=== PATIENT | female | born 1955 | race Caucasian/White ===

== ENCOUNTER 2017-03-01 14:02 | Outpatient (CLI) | payer BC ==
--- NOTE | 2017-03-01 14:32 | MMO ---
BILATERAL SCREENING MAMMOGRAM: Comparison: 2014, 2015 This study is interpreted with the assistance of computer aided detection. FINDINGS: Scattered fibroglandular densities are again noted. No suspicious finding or interval change. Recomme nd one year follow up. IMPRESSION: BIRADS 1 - negative. POS: LUZ
== END 2017-03-01 14:03 | disposition home or self-care (01) ==
LOC: SCSMAMMO 14:02
DX: Z12.31 Encounter for screening mammogram for malignant neoplasm of breast (principal)
CPT/HCPCS: 77067; G0202

== ENCOUNTER 2017-06-28 10:51 | Outpatient (CLI) | payer BC ==
[2017-06-28 11:51] LABS: Bilirubin Negative (Negative); Blood, Urine Negative (Negative); Clarity CLEAR (Clear); Glucose, Urine (Dipstick) Negative (Negative); Leukocyte Negative (Negative); Nitrite Negative (Negative); Protein, Urine (Dipstick) Negative (Neg-Trace); Specific Gravity, Urine 1.014 (1.002-1.036); Urobilinogen 0.2 mg/dL (0.2-1.0)
[2017-06-28 11:54] LABS: Bacteria/HPF None Seen HPF (None Seen); Hyaline Casts/LPF 0-3 HYALINE CAST LPF (0-3 Hyaline); Pathc Cast-AUWi Flag 0.14 (0-2.49); RBC/HPF 0-3 HPF (0-3); Squamous Epithelial None Seen HPF (0-3); WBC/HPF None Seen HPF (0-3)
[2017-06-28 12:03] LABS: #Basophils 0.1 thou/uL (0.0-0.2); #Eosinphils 0.2 thou/uL (0.0-0.7); #Lymphocytes 2.2 thou/uL (1.20-3.40); #Monocytes 0.4 thou/uL (0.11-0.59); #Neutrophils 2.7 thou/uL (1.40-6.50); %Basophils 1.4 % (0.0-1.0); %Eosinophils 3.3 % (0.0-10.0); %Monocytes 7.4 % (0.0-10.0); %Neutrophils 47.9 % (42.0-75.0); Hemoglobin 13.8 g/dL (12.0-16.0); Mean Corpuscular HGB CONC 33.3 g/dL (32.0-36.0); Mean Corpuscular Hemoglobin 32.5 pg (27.0-31.0); Mean Corpuscular Volume 97.6 fl (81.0-99.0); Mean Platelet Volume 7.5 fL (7.4-10.4); Platelet Count 206 thou/uL (130-400); RBC Distribution Width 11.6 % (11.5-14.5); Red Blood Cell (RBC) Count 4.24 mill/uL (4.20-5.40); White Blood Cell (WBC) Count 5.6 thou/uL (4.8-10.8)
[2017-06-28 12:10] LABS: ALT (SGPT) 15 U/L (8-55); AST (SGOT) 20 U/L (5-34); Albumin 4.8 g/dL (3.4-4.8); Alkaline Phosphatase 62 U/L (40-150); Anion Gap 10 mmol/L (10-20); BUN (Urea Nitrogen) 14 mg/dL (9.8-20.1); Bilirubin, Total 0.6 mg/dL (0.2-1.2); Calc. Creatinine Clearance 0 mL/min (70-130); Calcium 10.2 mg/dL (7.8-10.44); Carbon Dioxide 31 mmol/L (23-31); Chloride 104 mmol/L (98-107); Estimated GFR-MDRD 72; Globulin 2.7 g/dL (2.4-3.5); Glucose 99 mg/dL (80-115); Potassium 4.7 mmol/L (3.5-5.1); Protein, Total 7.5 g/dL (6.0-8.3); Sodium 140 mmol/L (136-145)
== END 2017-06-28 10:52 | disposition home or self-care (01) ==
LOC: LABBT 10:51
PROVIDERS: ATTEND Surgery
DX: Z01.818 Encounter for other preprocedural examination (principal); K64.2 Third degree hemorrhoids
CPT/HCPCS: 80053; 81001; 85025; 93005; 93010

== ENCOUNTER 2017-07-04 10:17 | Day surgery (SDC) | payer BC ==
[2017-06-28 10:58] VITALS: BMI 27.3
[2017-07-04] MEDS ORDERED: cefOXitin 2 GM, Syringe 1 ML in Sterile Water 10 ML SLOW IVP ONE (11:00)
[2017-07-04] MEDS ORDERED: Bupivacaine/Epinephrine 0.25% 30 ML VIAL ONE (11:08)
[2017-07-04] MEDS ORDERED: Bacitracin Zinc Ointment 30 gm TUBE ONE (11:08)
[2017-07-04] MEDS ORDERED: Ondansetron HCl/PF 4 MG/2 ML Vial ONE (11:37)
[2017-07-04] MEDS ORDERED: Midazolam HCl 2 mg/2 ml Vial ONE ×2 (11:37→11:53)
[2017-07-04] MEDS ORDERED: Fentanyl 250 MCG/5 ML VIAL ONE (11:37)
[2017-07-04] MEDS ORDERED: Glycopyrrolate 0.2 MG/ML 5 ML SYRINGE ONE (11:37)
[2017-07-04] MEDS ORDERED: Dexamethasone 20 MG/5 ML VIAL ONE (11:37)
[2017-07-04] MEDS ORDERED: Lidocaine 1% PF 5 ML VIAL ONE (11:37)
[2017-07-04] MEDS ORDERED: PROPOFOL 200 MG/20 ML VIAL ONE (11:37)
--- NOTE | 2017-07-04 11:43 | HP ---
CHIEF COMPLAINT: Hemorrhoidal prolapse. HISTORY OF PRESENT ILLNESS: The patient is a 61-year-old female, who is having episodic bright red b lood per rectum. Colonoscopy negative. She was found to have grade 3 hemorrhoids as the source. PAST MEDICAL HISTORY: Significant for hypertension. PAST SURGICAL HISTORY: section. Mole excision. MEDICATIONS: Vagifem and multivitamins. ALLERGIES: She has an allergy to BACTRIM. FAMILY HISTORY: Father of heart disease. Mother of heart disease. SOCIAL HISTORY: She is , retired, no tobacco, occasional alcohol. PHYSICAL EXAMINATION: VITAL SIGNS: Height 5 feet 1, weight 136, body mass index 25.7. Blood pressure 136/73. GENERAL: Well-developed, well-nourished female, in no apparent distress. HEENT: Unremarkable. LUNGS: Clear. HEART: Regular rate and rhythm. ABDOMEN: Soft, nontender, good bowel sounds. EXTREMITIES: Good pulses. No pedal edema. She has grade 3 hemorrhoids. ASSESSMENT: Symptomatic grade 3 hemorrhoids. PLAN: PPH stapled hemorrhoidectomy. CONSENT: I have discussed the planned procedure as well as risk of bleeding, infection, injury to sp hincter mechanism with incontinence. She understands and gives informed consent.
[2017-07-04] MEDS ORDERED: Fentanyl 100 MCG/2 ML VIAL ONE (13:01)
--- NOTE | 2017-07-04 13:41 | OP ---
PREOPERATIVE DIAGNOSIS: Bleeding grade III hemorrhoids. SURGEON: Sebastien Bill M.D. PROCEDURE PERFORMED: PPH stapled hemorrhoidectomy. INDICATIONS: The patient is a 61-year-old female with intermittent bright red blood per rectum. Col onoscopy did not show any other reason, besides the hemorrhoids. She did have prolapsing hemorrhoids . FINDINGS: Grade III hemorrhoids. PROCEDURE IN DETAIL: After informed consent was obtained, patient was taken to the operating room an d given general endotracheal anesthesia. She was placed in the prone jackknife position. Her perian al region was spread apart with tape, prepped and draped in usual fashion. Local anesthesia infiltra miguel subcutaneously and deep with 0.5% Marcaine as a four quadrant anal block. The anal retractor was inserted and sutured in place with interrupted 0 silk suture. Then the suture guide was inserted an d a pursestring of 2-0 Prolene was placed circumferentially in the rectal mucosa. The stapler was in serted and with the anvil fully open and advanced beyond the pursestring. The strings were brought t hrough the channels on the stapler with the guzman hook and tied as a knot. This knot was used to h old this pursestring tight against the shaft of the anvil as the anvil was closed. Then stapler was fired, held for 30 seconds, then released for 30 seconds and removed. The specimen inspected. There was no muscle fiber. There was one area of bleeding on the right anterior aspect. It was sutured w ith 3-0 chromic suture. Hemostasis assured. This was irrigated. Gelfoam impregnated. Bacitracin w as inserted within the anal canal. A sterile bandage was applied. Patient tolerated the procedure w ell and was transferred to recovery in good condition. Sponge and needle count verified correct x2.
[2017-07-04] MEDS ORDERED: Morphine 4 MG/ML VIAL ONE (13:43)
[2017-07-04] MEDS ORDERED: HYDROcodone/Acetaminophen 5/325 mg Tablet ONE ×2 (14:25→15:19)
== END 2017-07-04 16:20 | disposition home or self-care (01) ==
LOC: SDC 10:17
PROVIDERS: ATTEND Surgery
PROC: 06BY0ZC Excision of Hemorrhoidal Plexus, Open Approach (ICD-10-PCS; principal; 2017-07-04)
DX: K64.2 Third degree hemorrhoids (principal); I10 Essential (primary) hypertension; Z88.1 Allergy status to other antibiotic agents; Z88.2 Allergy status to sulfonamides; Z79.899 Other long term (current) drug therapy
CPT/HCPCS: 88304; 96374; A4216; J0694; J1100; J2001; J2250; J2270; J2405; J2704; J3010

== ENCOUNTER 2018-09-18 12:09 | Outpatient (CLI) | payer BC ==
--- NOTE | 2018-09-18 13:14 | MMO ---
Bilateral MAMMO Bilat Screen [facility]. CLINICAL HISTORY: Patient is 63 years old and is seen for screening. The patient has no family history of breast cancer. The patient has no personal history of cancer. VIEWS: The views performed were: bilateral craniocaudal with tomosynthesis and bilateral mediolateral oblique with tomosynthesis. FILMS COMPARED: The present examination has been compared to prior imaging studies performed at [facility] on 03/01/2017, and at [facility] on 05/09/2013, 06/04/2014 and 07/23/2015. MAMMOGRAM FINDINGS: There are scattered fibroglandular densities. There are no suspicious masses, suspicious calcifications, or new areas of architectural distortion. IMPRESSION: THERE IS NO MAMMOGRAPHIC EVIDENCE OF MALIGNANCY. A ROUTINE FOLLOW-UP MAMMOGRAM IN 1 YEAR IS RECOMMENDED. THE RESULTS OF THIS EXAM WERE SENT TO THE PATIENT. ACR BI-RADS Category 1 - Negative MAMMOGRAPHY NOTE: 1. A negative mammogram report should not delay a biopsy if a dominant of clinically suspicious mass is present. 2. Approximately 10% to 15% of breast cancers are not detected by mammography. 3. Adenosis and dense breasts may obscure an underlying neoplasm.
== END 2018-09-18 12:10 | disposition home or self-care (01) ==
LOC: BICMAMMO 12:09
PROVIDERS: ATTEND Obstetrics & Gynecology
DX: Z12.31 Encounter for screening mammogram for malignant neoplasm of breast (principal)
CPT/HCPCS: 77063; 77067

== ENCOUNTER 2018-11-30 10:52 | Outpatient (CLI) | payer BC ==
--- NOTE | 2018-11-30 14:09 | BD ---
DEXA BONE DENSITY SCAN: DATE: 11/30/2018. HISTORY: Postmenopausal female undergoing screening for osteoporosis. FINDINGS: Lumbar Spine: BMD (g/cm2) L1 0.796 T-Score: -1.8 L2 0.766 T-Score: -2.4 L3 0.839 T-Score: -2.2 L4 0.804 T-Score: -2.3 L1-L4 0.804 T-Score: -2.2 Femoral Neck: 0.606 T-Score: -2.2 Total Femur: 0.887 T-Score: -0.5 The FRAX-WHO fracture risk assessment tool reports a 10-year fracture risk at 11% for a major osteopo rotic fracture and 1.7% for a hip fracture in an untreated patient. Impression: Osteopenia noted within the lumbar spine and femoral neck correlating with a moderately increased ris k for fracture. POS: OFF
== END 2018-11-30 10:53 | disposition home or self-care (01) ==
LOC: BICMAMMO 10:52
PROVIDERS: ATTEND Obstetrics & Gynecology
DX: M81.0 Age-related osteoporosis without current pathological fracture (principal); M85.89 Other specified disorders of bone density and structure, multiple sites; Z79.890 Hormone replacement therapy
CPT/HCPCS: 77080

== ENCOUNTER 2023-02-22 06:06 | Emergency (ER) | payer MEDICARE, BC ==
[2023-02-22 06:31] LABS: #Basophils 0.1 thou/uL (0.0-0.2); #Eosinphils 0.1 thou/uL (0.0-0.7); #Monocytes 0.4 thou/uL (0.11-0.59); #Neutrophils 2.9 thou/uL (1.40-6.50); %Basophils 0.8 % (0.0-1.0); %Eosinophils 2.2 % (0.0-10.0); %Lymphocytes 45.1 % (21.0-51.0); %Monocytes 6.8 % (0.0-10.0); %Neutrophils 44.9 % (42.0-75.0); Hematocrit 44.1 % (36.0-47.0); Mean Corpuscular Hemoglobin 31.9 pg (27.0-31.0); Mean Corpuscular Volume 93.8 fl (78.0-98.0); Mean Platelet Volume 10.1 fL (7.4-10.4); Platelet Count 192 10x3/uL (130-400); RBC Distribution Width 12.4 % (11.5-14.5); White Blood Cell (WBC) Count 6.4 10x3/uL (4.8-10.8)
[2023-02-22 06:55] LABS: ALT (SGPT) 32 U/L (8-55); AST (SGOT) 32 U/L (5-34); Alkaline Phosphatase 79 U/L (40-110); Anion Gap 19 mmol/L (10-20); BUN (Urea Nitrogen) 16 mg/dL (9.8-20.1); Bilirubin, Total 1.4 mg/dL (0.2-1.2); Calc. Creatinine Clearance 0 mL/min (70-130); Carbon Dioxide 24 mmol/L (23-31); Chloride 102 mmol/L (98-107); Estimated GFR 77; Globulin 3.4 g/dL (2.4-3.5); Glucose 125 mg/dL (80-115); Potassium 3.6 mmol/L (3.5-5.1); Protein, Total 8.4 g/dL (5.8-8.1); Sodium 141 mmol/L (136-145)
[2023-02-22 07:00] LABS: Troponin I Less than 0.010 ng/mL (< 0.028)
[2023-02-22] MEDS ORDERED: hydrOXYzine 25 MG TAB ONE (07:21)
[2023-02-22 08:13] LABS: Bacteria/HPF None Seen HPF (None Seen); Bilirubin Negative (Negative); Blood, Urine Negative (Negative); CAUTI Indications for Culture Dysuria,urgency,freq; Clarity Clear (Clear); Glucose, Urine (Dipstick) Normal (Negative); Ketone, Urine 20 mg/dL (Negative); Leukocyte Negative Leu/uL (Negative); Nitrite Negative (Negative); Protein, Urine (Dipstick) Negative (Neg-Trace); RBC/HPF 0-3 HPF (0-3); Specific Gravity, Urine 1.013 (1.002-1.036); Squamous Epithelial 0-3 HPF (0-3); Urobilinogen Normal mg/dL (Less than 2); WBC/HPF 0-3 HPF (0-3)
[2023-02-22 08:24] LABS: Urine Culture Reflex No No
[2023-02-22 08:32] LABS: Amphetamine Not Detected (NotDetected); Barbiturates Screen Not Detected (NotDetected); Benzodiazepine Screen Not Detected (NotDetected); Cocaine Metabolite Screen Not Detected (NotDetected); Methadone Not Detected (NotDetected); Methamphetamine Not Detected (NotDetected); Opiate Screen Not Detected (NotDetected); Oxycodone Screen Not Detected (NotDetected); Phencyclidine (PCP) Not Detected (NotDetected); THC/Cannabinoid Screen Not Detected (NotDetected); Tricyclic Screen Not Detected (NotDetected)
== END 2023-02-22 07:45 | disposition home or self-care (01) ==
LOC: ERS 06:06
DX: F41.9 Anxiety disorder, unspecified (principal)
CPT/HCPCS: 71045; 80053; 80306; 81001; 83880; 84443; 84484; 85025; 93005; 94760; 96374

== ENCOUNTER 2023-04-06 12:00 | Outpatient (CLI) | payer BC, MEDICARE | END 2023-04-06 12:01 | disposition home or self-care (01) | LOC: BICRAD 12:00 | PROVIDERS: ATTEND Family Medicine | DX: J40 Bronchitis, not specified as acute or chronic (principal) | CPT/HCPCS: 71046 ==

== ENCOUNTER 2023-05-02 10:32 | Outpatient (CLI) | payer MEDICARE | END 2023-05-02 10:33 | disposition home or self-care (01) | LOC: BICMAMMO 10:32 | PROVIDERS: ATTEND Obstetrics & Gynecology | DX: M85.851 Other specified disorders of bone density and structure, right thigh (principal); M85.852 Other specified disorders of bone density and structure, left thigh; M81.0 Age-related osteoporosis without current pathological fracture | CPT/HCPCS: 77080 ==

== ENCOUNTER 2024-11-29 10:24 | Outpatient (CLI) | payer MEDICARE | END 2024-11-29 10:25 | disposition home or self-care (01) | LOC: BICMAMMO 10:24 | PROVIDERS: ATTEND Family Medicine | DX: M81.0 Age-related osteoporosis without current pathological fracture (principal); M85.89 Other specified disorders of bone density and structure, multiple sites | CPT/HCPCS: 77080 ==